=== PATIENT | male | born 1960 | race African-American/Black ===

== ENCOUNTER 2018-02-07 17:06 | Inpatient (IN) | payer MEDICARE, MEDICAID ==
[~2018-02-07] VITALS: Ht 185.4 cm; Wt 79.4 kg
[2018-02-07] MEDS ORDERED: SODIUM CHLORIDE 0.9% 1,000 ML IV ONE (21:27)
[2018-02-07] MEDS ORDERED: ONDANSETRON HCL 4MG/2ML VIAL IV STA (21:27)
[2018-02-07] MEDS ORDERED: MORPHINE SULFATE 4 MG/ML CPJ (NOT FOR IM USE) IV STA (21:27)
[2018-02-07 21:57] LABS: BASOPHILS % 0.6 % (0.0-2.0); EOSINOPHILS % 0.8 % (0.0-5.0); HEMATOCRIT. 42.7 % (42.0-52.0); HEMOGLOBIN. 14.1 g/dL (14.0-18.0); MEAN CORPUSCULAR HEMOGLOBIN 28.8 pg (28.0-32.0); MEAN CORPUSCULAR VOLUME 87.2 fL (80.0-94.0); MEAN PLATELET VOLUME 9.1 fl (7.4-10.4); MONOCYTES % 7.8 % (2.0-8.0); NEUTROPHILS % 75.8 % (40.0-76.0); PLATELET 141 x1000/uL (130-400); RED BLOOD CELL COUNT 4.89 mill/uL (4.7-6.1); RED CELL DISTRIBUTION WIDTH 14.6 % (11.6-14.6)
[2018-02-07 22:05] LABS: CHLORIDE 110 mEq/L (98-107)
[2018-02-07 22:08] LABS: INR 1.1; PARTIAL THROMBOPLASTIN TIME 25.3 sec (23.4-31.0); PROTHROMBIN TIME 11.1 sec (9.4-11.6)
[2018-02-07] MEDS ORDERED: IOHEXOL-300 100 ML BOTTLE ONE (23:10)
[2018-02-08 04:00] VITALS: BP 137/83
[2018-02-08 08:15] VITALS: BP 134/72
[2018-02-08] MEDS ORDERED: CLONIDINE 0.1MG TABLET PO PRN (08:30)
[2018-02-08] MEDS ORDERED: DOCUSATE SODIUM 100MG CAPSULE PO PRN (08:30)
[2018-02-08] MEDS ORDERED: IPRATROPIUM/ALBUTEROL 0.5-3(2.5)MG/3ML NEB INH PRN (08:30)
[2018-02-08] MEDS ORDERED: ACETAMINOPHEN 650MG SUPP PR PRN (08:30)
[2018-02-08] MEDS ORDERED: DIPHENHYDRAMINE 50MG/ML VIAL IV PRN (08:30)
[2018-02-08] MEDS ORDERED: HYDROCODONE/ACETAMINOPHEN 5/325MG TABLET PO PRN ×2 (08:30→20:30)
[2018-02-08] MEDS ORDERED: ONDANSETRON HCL 4MG/2ML VIAL IV PRN (08:30)
[2018-02-08] MEDS ORDERED: MAGNESIUM/ALUMINUM HYDROXIDE/SIMETHICONE 30ML UDC PO PRN (08:30)
[2018-02-08] MEDS ORDERED: ACETAMINOPHEN 650MG/20.3ML UDC GT PRN (08:30)
[2018-02-08] MEDS ORDERED: ACETAMINOPHEN 325MG TABLET PO PRN (08:30)
[2018-02-08] MEDS ORDERED: GUAIFENESIN 200MG/10ML SUGAR FREE UDC PO PRN (08:30)
[2018-02-08] MEDS ORDERED: NA PHOS,M-B/NA PHOS,DI-BA ENEMA 118ML PR PRN (08:30)
[2018-02-08 12:04] VITALS: BP 140/76
[2018-02-08] MEDS: SODIUM CHLORIDE 0.9% INJ 3ML FLUSH IVF SCH ×2 (15:11→20:47)
[2018-02-08 15:59] LABS: CREATINE KINASE 243 IU/L (39-308)
[2018-02-08 16:00] VITALS: BP 120/78
[2018-02-08 16:00] LABS: CREATINE KINASE MB FRACTION 1.4 ng/mL (0.5-3.6)
[2018-02-08] MEDS ORDERED: PRED5TAB48 PO (17:46)
[2018-02-08] MEDS ORDERED: PROG1 MT (17:46)
[2018-02-08] MEDS ORDERED: CELL5 MT (17:46)
[2018-02-08] MEDS: SODIUM CHLORIDE 0.45% 1,000 ML IV SCH (18:03)
[2018-02-08] MEDS ORDERED: MEDICATION NOT ON FORMULARY EA (Prednisone 5 MG) PO SCH (18:30)
[2018-02-08] MEDS ORDERED: TACROLIMUS 1MG CAPSULE PO SCH (18:30)
[2018-02-08] MEDS ORDERED: MYCOPHENOLATE MOFETIL 500MG TABLET PO SCH ×2 (18:30)
[2018-02-08] MEDS: PREDNISONE 5MG TABLET PO SCH (19:02)
[2018-02-08] MEDS: TACROLIMUS 1MG CAPSULE PO SCH (19:02)
[2018-02-08 19:48] VITALS: BP 127/72
[2018-02-08 23:07] LABS: CLARITY URINE CLEAR (CLEAR); COLOR URINE YELLOW (YELLOW); KETONES URINE NEGATIVE (NEGATIVE); LEUKOCYTE ESTERASE URINE NEGATIVE (NEGATIVE); NITRITE URINE NEGATIVE (NEGATIVE); OCCULT BLOOD URINE NEGATIVE (NEGATIVE); PH URINE 6.5 (4.5-8.0); PROTEIN URINE NEGATIVE (NEGATIVE); SPECIFIC GRAVITY URINE 1.028 (1.005-1.030); UROBILINOGEN URINE 0.2 E.U./dL (0.2-1.0)
[2018-02-08 23:11] LABS: CHLORIDE 107 mEq/L (98-107)
[2018-02-08 23:20] LABS: CREATINE KINASE 216 IU/L (39-308)
[2018-02-08 23:22] LABS: CREATINE KINASE MB FRACTION 1.2 ng/mL (0.5-3.6)
[2018-02-08 23:22] LABS: *BARBITURATES SCREEN URINE NEGATIVE (NEGATIVE); *BENZODIAZEPINES SCREEN URINE NEGATIVE (NEGATIVE); *COCAINE SCREEN URINE NEGATIVE (NEGATIVE)
[2018-02-08 23:23] LABS: METHADONE URINE SCREEN NEGATIVE (NEGATIVE); OPIATES URINE SCREEN PRESUMTIVE POSITIVE (NEGATIVE); PHENCYCLIDINE URINE SCREEN NEGATIVE (NEGATIVE)
[2018-02-08 23:24] LABS: *AMPHETAMINES SCREEN URINE NEGATIVE (NEGATIVE); CANNABINOID URINE SCREEN PRESUMTIVE POSITIVE (NEGATIVE)
[2018-02-08 23:56] VITALS: BP 145/82
[2018-02-09 00:01] LABS: BASOPHILS % 0.4 % (0.0-2.0); EOSINOPHILS % 1.4 % (0.0-5.0); HEMATOCRIT. 43.1 % (42.0-52.0); HEMOGLOBIN. 14.2 g/dL (14.0-18.0); LYMPHOCYTES % 20.1 % (20.0-50.0); MEAN CORPUSCULAR HEMOGLOBIN 28.9 pg (28.0-32.0); MEAN CORPUSCULAR VOLUME 87.7 fL (80.0-94.0); MEAN PLATELET VOLUME 9.5 fl (7.4-10.4); MONOCYTES % 9.9 % (2.0-8.0); NEUTROPHILS % 68.2 % (40.0-76.0); PLATELET 141 x1000/uL (130-400); RED BLOOD CELL COUNT 4.91 mill/uL (4.7-6.1); RED CELL DISTRIBUTION WIDTH 14.9 % (11.6-14.6)
[2018-02-09] MEDS: HYDROCODONE/ACETAMINOPHEN 10/325MG TABLET PO PRN ×2 (00:12→09:19)
[2018-02-09 04:00] VITALS: BP 151/84
[2018-02-09] MEDS: SODIUM CHLORIDE 0.9% INJ 3ML FLUSH IVF SCH ×2 (05:15→13:09)
[2018-02-09 08:00] VITALS: BP 144/85
[2018-02-09] MEDS ORDERED: MYCOPHENOLATE MOFETIL 500MG TABLET PO SCH ×3 (09:00→21:00)
[2018-02-09] MEDS: PREDNISONE 5MG TABLET PO SCH (09:07)
[2018-02-09] MEDS: TACROLIMUS 1MG CAPSULE PO SCH (09:08)
[2018-02-09] MEDS: SODIUM CHLORIDE 0.45% 1,000 ML IV SCH (11:12)
[2018-02-09 12:16] VITALS: BP 147/87
[2018-02-09 15:05] VITALS: BP 147/88
[2018-02-09 15:06] VITALS: BP 147/88
[2018-02-09 16:06] LABS: BASOPHILS % 0.5 % (0.0-2.0); CHLORIDE 106 mEq/L (98-107); EOSINOPHILS % 0.2 % (0.0-5.0); HEMATOCRIT. 47.2 % (42.0-52.0); HEMOGLOBIN. 15.6 g/dL (14.0-18.0); LYMPHOCYTES % 17.4 % (20.0-50.0); MEAN CORPUSCULAR HEMOGLOBIN 28.8 pg (28.0-32.0); MEAN CORPUSCULAR VOLUME 87.4 fL (80.0-94.0); MEAN PLATELET VOLUME 8.9 fl (7.4-10.4); MONOCYTES % 7.5 % (2.0-8.0); NEUTROPHILS % 74.4 % (40.0-76.0); PLATELET 161 x1000/uL (130-400); RED CELL DISTRIBUTION WIDTH 14.8 % (11.6-14.6)
[2018-02-10] MEDS ORDERED: MYCOPHENOLATE MOFETIL 500MG TABLET PO SCH (09:00)
== END 2018-02-09 16:15 | disposition home or self-care (01) | DRG 183 ==
LOC: ER 17:33 → 6WST 02-08 01:55 → ENRESERV 02-08 02:23
PROVIDERS: ADMIT Family Medicine; ATTEND Family Medicine
DX: S22.42XA Multiple fractures of ribs, left side, initial encounter for closed fracture (principal); N18.6 End stage renal disease; E44.1 Mild protein-calorie malnutrition; I12.0 Hypertensive chronic kidney disease with stage 5 chronic kidney disease or end stage renal disease; Z94.0 Kidney transplant status; J44.9 Chronic obstructive pulmonary disease, unspecified; N40.0 Benign prostatic hyperplasia without lower urinary tract symptoms; K80.20 Calculus of gallbladder without cholecystitis without obstruction; N28.9 Disorder of kidney and ureter, unspecified; W17.89XA Other fall from one level to another, initial encounter; Z82.49 Family history of ischemic heart disease and other diseases of the circulatory system; Z99.2 Dependence on renal dialysis; Z87.891 Personal history of nicotine dependence; Y93.A5 Activity, obstacle course; Y92.89 Other specified places as the place of occurrence of the external cause; Y99.8 Other external cause status; Z79.899 Other long term (current) drug therapy; Z68.23 Body mass index [BMI] 23.0-23.9, adult; Z60.2 Problems related to living alone
CPT/HCPCS: 36415; 71045; 71260; 74177; 80053; 80305; 81003; 82550; 82553; 83690; 83735; 84100; 84484; 85025; 85610; 85730; 86850; 86900; 93005; 96360; 96375; 99285; J2270; J2405; J7030; J7507; J7512; J7517; Q9967